=== PATIENT | male | born 1960 | race Caucasian/White ===

== ENCOUNTER → 2016-09-03 | Outpatient (CLI) | payer MEDICARE, MEDICAID ==
[~2016-09-03] MED LIST: ACID CONTROL150 MG PO; ALENDRONATE SOD70 MG PO; ASPIRIN (CHILDR81 MG PO; ASPIRIN325 MG PO; CALCIUM 600 +1 EAC6 PO; CALCIUM CARBON600 MG; CERTAVITE-ANTI1 EACH PO; DELTASONE5 MG; DELTASONE5 MG PO; DOXYCYCLINE100 MG PO; FLONASE 50 MCG/16 GM NOSE; FLORASTOR250 MG PO; GLUCOSE4 GM PO; LANTUS (IN100 UNIT/M; LANTUS SOL100 UNIT/1 PO; LEVAQUIN 750 M750 MG PO; LIPITOR10 MG; LIPITOR10 MG PO; METOPROLOL SUCC25 MG PO; MYFORTIC360 MG; MYFORTIC360 MG PO; NEORAL100 M1 PO; NEORAL25 MG; NEORAL25 MG PO; NOVOLOG FL100 UNIT/1 SUB-Q; NOVOLOG100 UNIT/M; PRINIVIL OR ZES10 MG PO; PROVENTIL OR V6.7 GM INH; SODIUM BICARBO650 MG; SODIUM BICARBO650 MG PO; TYLENOL325 MG; TYLENOL325 MG PO; VITAMIN D1000 UNIT PO; ZANTAC300 MG; ZESTRIL2.5 MG PO; [UNRECOGNIZED DRUG - OTHER]
[2016-09-03 09:51] LABS: BASOPHIL # 0.1 K/uL (0.0-0.2); EOSINOPHIL # 0.5 K/uL (0.0-0.5); EOSINOPHIL % 6.3 %; HEMATOCRIT 39.6 % (37.0-53.0); HEMOGLOBIN 12.7 g/dL (12.0-17.0); IMMATURE GRANULOCYTE % 0.4 %; LYMPHOCYTE # 2.1 K/uL (0.8-4.0); LYMPHOCYTE % 25.7 %; MCH 30.1 pg (27.0-34.0); MCHC 32.1 gm/dL (32.0-36.5); MCV 93.8 fl (83.0-98.0); MONOCYTE # 1.3 K/uL (0.0-1.0); MONOCYTE % 16.5 %; MPV 10.9 fl (9.4-12.4); NEUTROPHIL # (ANC) 4.1 K/uL (1.4-9.0); NEUTROPHIL % 50.1 %; NRBC % 0 /100WBC (0-0.00); PLATELET COUNT 276 K/uL (150-450); RBC 4.22 M/uL (4.00-6.00); RDW-CV 14.4 % (11.9-14.6); WBC 8.1 K/uL (4.0-11.0)
[2016-09-03 10:08] LABS: ANION GAP 12.5 (10.0-19.0); CALCIUM 8.7 mg/dL (8.5-10.5); CREATININE 2.4 mg/dL (0.6-1.3); MAGNESIUM 1.7 mg/dL (1.8-2.6); PHOSPHORUS 3.5 mg/dL (2.5-4.9); POTASSIUM 4.5 mMol/L (3.7-5.1)
== END | disposition disaster alternative care site (69) ==
LOC: GLAB 09:31
PROVIDERS: Internal Medicine Nephrology
DX: Z48.22 Encounter for aftercare following kidney transplant (principal); Z94.0 Kidney transplant status; Z79.899 Other long term (current) drug therapy

== ENCOUNTER 2016-10-11 12:30 | Inpatient (IN) | payer MEDICARE, MEDICAID ==
[~2016-10-11] VITALS: Ht 180.3 cm; Wt 61.0 kg
--- NOTE | ~2016-10-11 | DS ---
PATIENT'S NAME: FRANK RIVERA [facility] AGE: 56 Y [address] ROOM: [address] [place], [place] [address] LOCATION: [facility] ADMIT DATE: 10/12/2016 Discharge Summary DISCHARGE DATE: 10/15/2016 FAMILY PHYSICIAN: Sabi Godoy MD ATTENDING PHYSICIAN: Dianne Gayle CONSULTING PHYSICIANS: Dr. Mendiola. DISCHARGE DIAGNOSES: 1. Acute kidney injury on chronic kidney disease. 2. Gastroenteritis. 3. Diabetes mellitus type 1 with hyperglycemia. 4. Essential hypertension. 5. Urinary retention. 6. History of bilateral renal transplants. 7. Diabetic peripheral neuropathy. 8. Moderate protein-calorie malnutrition. HOSPITAL COURSE: Please refer to admitting history and physical as dictated by Tr Blackman APRN. Briefly, the patient was admitted to [facility] with acute kidney injury on chronic kidney disease, 3. He was also found to have acute gastroenteritis with diarrhea. However, once he was admitted, he had no further diarrhea. He was started on IV fluids. The following day, creatinine deven from 3.3 to 3.6. Nephrology was consulted. Ultrasound of his kidneys was performed to rule out hydronephrosis as the patient did have urinary retention the night before and had to have a Weinstein catheter placed. Dr. Mendiola did write to hold his cyclosporine. His lisinopril was held. He underwent a MAG3 scan as per Urology. It was felt as though the patient likely had a component of ATN on top of possible obstruction causing the hydronephrosis. Dr. Mendiola was in contact with [facility] his transplanted kidneys. The following day, his creatinine was down to 2.2. His Weinstein catheter was subsequently discontinued. The MAG3 scan did show prompt blood flow to the transplanted kidneys, atonic non- obstructed collecting system at the transplanted kidneys. On 10/14, he was given a dose of Lasix. The patient was able to void post-Weinstein, voiding 250- 400 per void with postvoid residuals at 310. Ultrasound was repeated of the kidneys which continued to show hydronephrosis which may have worsened since the prior study. Therefore, Weinstein catheter was placed and will be discharged with the catheter. On 10/14, he was noted to have a potassium of 5.3. He was given Kayexalate. On 10/15/2016, his potassium had improved to 5.1, sodium was 142, his creatinine was down to baseline at 1.9. It was felt as though he could be discharged to home with his Weinstein catheter. He should follow up with Dr. Lacho Mccann on 10/21 at the [facility]. We did go ahead and restart his lisinopril on the day of discharge. He should follow up with Dr. Sabi Godoy on 10/20/2016 with a CBC and a renal panel at that time. I did PATIENT'S NAME: FRANK RIVERA [facility] AGE: 56 Y [address] ROOM: [place] [address] LOCATION: [facility] ADMIT DATE: 10/12/2016 Discharge Summary DISCHARGE DATE: 10/15/2016 FAMILY PHYSICIAN: Sabi Godoy MD ATTENDING PHYSICIAN: Dianne Gayle A call and speak with Dr. Godoy on the day of discharge. His sugars were very labile. He did have some hypoglycemia on the morning of discharge. The patient states he adjusts his insulin based on his glucose levels at home. We will go ahead and resume his home insulin regimen while at home. LABORATORY DATA: Sodium remained stable 138-143. Potassium 4.8 upon admit, it did go as high as 5.8, prior to discharge 4.1. Glucose ranged from 61-336. BUN upon admit 61, prior to discharge 45. Creatinine 3.6 upon admit, 1.9 prior to discharge. GFR 18 upon admit, 37 prior to discharge. WBCs within normal limits, hemoglobin 12.8, hematocrit 40.7, platelets 276. Renal labs sent out labs were pending on the day of discharge. UA: Leukocytes 100, nitrites negative, protein 30, glucose 250, wbc's 2-5, rbc's 5-10, bacteria few. Urine sodium random 49, urine potassium 9.0, urine creatinine 35.0. Stool for C. diff was negative. Stool for O and P negative. White blood cells negative for fecal. RADIOLOGY REPORTS: Ultrasound of the transplanted kidneys done on 10/12/2016 showed two transplanted kidneys with mild persistent hydronephrosis. MAG3 scan, see hospital course. Followup ultrasound of the transplanted kidneys showed hydronephrosis which appeared to be worsened since the previous study. DISCHARGE INSTRUCTIONS: The patient will be discharged to home. DIET: As tolerated, diabetic. ACTIVITY: As tolerated. FOLLOWUP APPOINTMENT: With Dr. Godoy in 3 days with renal and CBC. Followup appointment Dr. Lacho Mccann on 10/21/2016 at 10:20 at the [facility]. Continue Weinstein. DISCHARGE MEDICATIONS: 1. Aspirin 325 mg p.o. daily. 2. Lipitor 10 mg p.o. daily. 3. Calcium with vitamin D two tablets p.o. daily. 4. Multivitamin one tablet daily. 5. Vitamin D3, 2000 units p.o. daily. 6. Neoral 25 mg p.o. twice daily. 7. Alendronate 70 mg p.o. weekly. 8. Lantus 18 units subcu at bedtime. 9. NovoLog carb count with meals. 10. Lisinopril 10 mg p.o. daily. PATIENT'S NAME: FRANK RIVERA [facility] AGE: 56 Y [address] ROOM: [place] [address] LOCATION: [facility] ADMIT DATE: 10/12/2016 Discharge Summary DISCHARGE DATE: 10/15/2016 FAMILY PHYSICIAN: Sabi Godoy MD ATTENDING PHYSICIAN: Dianne Gayle 11. Metoprolol 25 mg p.o. daily. 12. Myfortic 360 mg p.o. twice a day. 13. Prednisone 5 mg p.o. daily. 14. Sodium bicarb 1950 mg p.o. every night at bedtime. 15. Neoral 100 mg p.o. twice daily. 16. Ranitidine 150 mg p.o. twice daily. 17. Tylenol 650 mg p.o. every 4 hours as needed for pain. 18. Albuterol 1 puff every 4 hours as needed for shortness of breath. 19. Flonase 50 mcg 1 spray for nasal congestion p.r.n. Thank you for allowing us to participate in the care of this patient as he has been hospitalized at [facility]. JUDE HUSAIN APRN FOR DIANNE GAYLE MD KRR/modl /[id number] CC: MD Sabi Levi MD Abhisekh Sinha Ray, MD d: 10/16/16 0258 t: 11/08/16 0959, DISCHARGE SUMMARY
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
[~2016-10-11 12:30] MED LIST changes: -ALENDRONATE SOD70 MG PO; -FLONASE 50 MCG/16 GM NOSE; -LEVAQUIN 750 M750 MG PO; -PROVENTIL OR V6.7 GM INH
--- NOTE | 2016-10-11 13:39 | NUR ---
Pt is 56 y/o male admit for renal insufficiency/dehydration for hospitalist. Pt alert and oriented x3. No allergies. REsides at home with his older brother. BP low on admission. 80's/50's. Pt states he's been having diarrhea all night. Hx kidney/pancreas transplant,Type 1 DM,sinus problems,seasonal allergies,htn,murmur,pneumonia,nocturia. No c/o pain or discomfort.
[2016-10-11] MEDS ORDERED: FLONASE 50 MCG/16 GM NOSE (13:47)
[2016-10-11] MEDS ORDERED: PROVENTIL OR V6.7 GM INH (13:47)
[2016-10-11] MEDS ORDERED: ALENDRONATE SOD70 MG PO (13:48)
--- NOTE | 2016-10-11 16:21 | NUR ---
Patient is alert and oriented. Is hypotensive, tachycardic, no fevers. No shortness of breath, no pain, no nausea. Bowel sounds hyperactive. No stools so far this shift. IV to right arm, currently saline locked. has Skin tag on buttocks. Scaly, dry, lesion to right upper back. Scabs to left leg. Is ACHS accuchecks, with mild sliding scale. Diet is diabetic/renal. Will need a stool sample. Activity is as tolerated, SBA. Cooperative with cares.
[2016-10-12 05:04] LABS: BASOPHIL # 0.1 K/uL (0.0-0.2); BASOPHIL % 0.6 %; EOSINOPHIL # 0.4 K/uL (0.0-0.5); EOSINOPHIL % 5.4 %; HEMATOCRIT 38.4 % (37.0-53.0); HEMOGLOBIN 12.2 g/dL (12.0-17.0); IMMATURE GRANULOCYTE % 0.4 %; LYMPHOCYTE # 1.2 K/uL (0.8-4.0); LYMPHOCYTE % 14.1 %; MCH 29.5 pg (27.0-34.0); MCHC 31.8 gm/dL (32.0-36.5); MONOCYTE # 1.4 K/uL (0.0-1.0); MONOCYTE % 17.6 %; MPV 10.7 fl (9.4-12.4); NEUTROPHIL # (ANC) 5.1 K/uL (1.4-9.0); NEUTROPHIL % 61.9 %; NRBC % 0 /100WBC (0-0.00); PLATELET COUNT 281 K/uL (150-450); RBC 4.13 M/uL (4.00-6.00); RDW-CV 14.1 % (11.9-14.6); WBC 8.2 K/uL (4.0-11.0)
[2016-10-12 05:17] LABS: ALBUMIN 3.1 gm/dL (3.5-5.0); ANION GAP 13.8 (10.0-19.0); CALCIUM 8.8 mg/dL (8.5-10.5); CREATININE 3.6 mg/dL (0.6-1.3); PHOSPHORUS 4.4 mg/dL (2.5-4.9); POTASSIUM 4.8 mMol/L (3.7-5.1)
--- NOTE | 2016-10-12 05:19 | NUR ---
Significant Event:pt is a/o x3. pt has iv to r fa w/ ns@ 100ml. pt was hypotensive at start of shift of 82/54, bp was 106/56 at second assessment. pt was also tachy at first assessment and in the 90's at second assessment. pt only voided 150mls this am, bladder scan for 494, order for jorge placement. pt c/o nausea around 2300 but refused any medication, no emesis. accuchecks ac/hs, bs was 295 with 4 units given. pt is a sba when up. need stool sample Follow up:
--- NOTE | 2016-10-12 11:52 | NUR ---
Introduced self and role of care management to patient. He lives in [place] with his brother. He states that he is able to do all his own ADL's. He states that his brother does assist if needed. He plans on returning home on discharge. He denies any needs at this time. Will continue to follow.
--- NOTE | 2016-10-12 13:28 | NUR ---
[facility] note: Noted A1C of 8.5 % upon admission. Patient is well known to staff in [facility], has received Diabetes Education with us in years past, and does on a regular bases get his glucose meter downloaded. History of pancrease/kidney transplant with great variations in his blood sugars. Patient is sleeping at the time CDE goes to home, left the Diabetes Management booklet and Diabetes Survival Skills Assessment form at bedside. Will check on patient later today.
--- NOTE | 2016-10-12 15:22 | NUR ---
Diabetes note 1500 Talked to patient and encouraged him to complete the Diabetes Survival Skills checklist, patient states he has all of his supplies at home. Patient reports that he may be going to [facility] for treatment of his medical conditions, so he states he may not complete the form. Denies needing additional education at this time, informed patient of current A1C of 8.5 %. Patient states "that's good for me"! Discussed complications related to eyes, kidneys, heart and nerves and with proper control of blood sugars we can further assist in reducing risks of future complications. Patient states understanding teaching provided.
--- NOTE | 2016-10-12 16:51 | NUR ---
Significant event: Patient is alert and oriented x3.VSS, on room air. Weinstein in place and patent. Strict I&O. Iv to Right forearm, with Normal saline at 100ml/hr. Blood pressure better today. up independently, took shower. Is ACHS accuchecks, with mild sliding scale and carb count. Gets Levemir BID. No BM's today, still need stool sample. Is to have a urology evaluation. Is a daily standing weight. Needs to have a Mag3 scan. Keep NPO after midnight. Cooperative with cares.
[2016-10-12 17:54] LABS: BILIRUBIN URINE NEGATIVE (NEGATIVE); BLOOD URINE 250 /UL (NEGATIVE); GLUCOSE URINE 250 mg/dL (NEGATIVE); KETONE URINE NEGATIVE (NEGATIVE); LEUKOCYTES URINE 100 /UL (NEGATIVE); NITRITE URINE NEGATIVE (NEGATIVE); PROTEIN URINE 30 mg/dL (NEGATIVE); UROBILINOGEN URINE NORMAL (NORMAL)
[2016-10-12 17:56] LABS: COLOR URINE YELLOW (YELLOW); TURBIDITY URINE CLEAR (CLEAR)
[2016-10-12 18:13] LABS: BACTERIA URINE FEW (NEGATIVE); EPITHELIAL URINE 0-2 #/HPF (NEGATIVE)
[2016-10-12 18:14] LABS: MUCUS URINE 2+ (NEGATIVE)
[2016-10-12 18:15] LABS: HYALINE CAST URINE 0-2 #/LPF (NEGATIVE)
--- NOTE | 2016-10-13 04:24 | NUR ---
Significant Event:pt is a/o x3. pt is a sba, iv to r fa has ns @ 100ml/hr. pt had over 3000mls of uop in jorge. pt is accuchecks ac/hs with mild scale, and carb count, bs was 97. pt gets levimir 8 units bid. pt to have lasix renal scan this am, pt does not need to be npo for this porcedure . pt hypertensive at start of shift. metoperol held per parameters for sbp <140 @ 2200. no c/o n/v or pain. Follow up:lasix renal scan this am
[2016-10-13 07:01] LABS: BASOPHIL # 0.1 K/uL (0.0-0.2); BASOPHIL % 0.6 %; EOSINOPHIL # 0.4 K/uL (0.0-0.5); EOSINOPHIL % 4.3 %; HEMATOCRIT 40.7 % (37.0-53.0); HEMOGLOBIN 12.8 g/dL (12.0-17.0); IMMATURE GRANULOCYTE % 0.4 %; LYMPHOCYTE # 1.7 K/uL (0.8-4.0); LYMPHOCYTE % 18.3 %; MCH 29.7 pg (27.0-34.0); MCHC 31.4 gm/dL (32.0-36.5); MCV 94.4 fl (83.0-98.0); MONOCYTE # 1.5 K/uL (0.0-1.0); MONOCYTE % 16.6 %; MPV 10.9 fl (9.4-12.4); NEUTROPHIL # (ANC) 5.4 K/uL (1.4-9.0); NEUTROPHIL % 59.8 %; NRBC % 0 /100WBC (0-0.00); PLATELET COUNT 255 K/uL (150-450); RBC 4.31 M/uL (4.00-6.00); RDW-CV 13.8 % (11.9-14.6)
[2016-10-13 07:18] LABS: ALBUMIN 3.4 gm/dL (3.5-5.0); ANION GAP 14.8 (10.0-19.0); CALCIUM 8.9 mg/dL (8.5-10.5); CREATININE 2.2 mg/dL (0.6-1.3); PHOSPHORUS 2.9 mg/dL (2.5-4.9); POTASSIUM 4.8 mMol/L (3.7-5.1)
--- NOTE | 2016-10-13 13:37 | NUR ---
[facility] note: Patient denies needing any education regarding his diabetes, he is currently working on Diabetes Survival skills assessment form.
--- NOTE | 2016-10-13 15:52 | NUR ---
Significant event: Patient is alert and oriented. VSS. On room air. Weinstein removed at 1535. If no void in 4 hours, need to call the hospitalist. Is on ACHS accuchecks, with mild Slidig scale and carb count. Had his scan today. Has IV to left forearm with fluids at 100. On a renal/diabetic diet, tolerating well. No stools this shift. NO complaints of pain. Cooperative with cares.
[2016-10-13 16:11] LABS: CREATININE 2.2 mg/dL (0.6-1.3)
--- NOTE | 2016-10-14 02:49 | NUR ---
Significant Event: A/ O X 3. PATIENT IS SBA WITH IV POLE. IV FLUIDS INFUSING. VOIDS GOOD AMOUNTS 400-450ML 4 X. PASSING FLATUS, NO BM. AT HS ACCUCHECK WAS 297. INSULIN COVERAGE MILD SLIDING SCALE GIVEN. LEVEMIR GIVEN ALSO. ON RENAL/DIABETIC DIET. PATIENT HYPERTENSIVE. HAD METOPEROL THIS SHIFT. DENIES PAIN OR NAUSEA. AMBULATED IN HALLS, SBA, GOOD TOLERANCE. Follow up:
[2016-10-14 05:36] LABS: ALBUMIN 3.6 gm/dL (3.5-5.0); ANION GAP 12.3 (10.0-19.0); PHOSPHORUS 3.6 mg/dL (2.5-4.9); POTASSIUM 5.3 mMol/L (3.7-5.1)
--- NOTE | 2016-10-14 17:24 | NUR ---
AAOx3. Up independently in room. IVF to LFA. BS ac/hs mild SSI, CC, and Levemir BID. VSS, afebrile, on RA. Refused jorge placement; had been pulled yesterday, but Dr Mendiola ordered reinsertion. On antirejection meds. IV Lasix x1 today. Voiding per urinal 250-400per void1. (Did scan PVR x1 w/310ml present). Watching for Cr level in a.m.
[2016-10-14 18:39] LABS: ANION GAP 12.8 (10.0-19.0); CALCIUM 9.1 mg/dL (8.5-10.5); CREATININE 2.1 mg/dL (0.6-1.3)
[2016-10-14 18:44] LABS: POTASSIUM 5.8 mMol/L (3.7-5.1)
[2016-10-15 06:03] LABS: ALBUMIN 3.6 gm/dL (3.5-5.0); ANION GAP 13.1 (10.0-19.0); CALCIUM 8.9 mg/dL (8.5-10.5); CREATININE 1.9 mg/dL (0.6-1.3); PHOSPHORUS 3.6 mg/dL (2.5-4.9)
[2016-10-15 06:04] LABS: POTASSIUM 4.1 mMol/L (3.7-5.1)
--- NOTE | 2016-10-15 07:32 | NUR ---
Significant Event: A/O X3 AND COOPERATIVE WITH CARES. UP AD AMY. AC/HS ACCUCHECKS, OCCASIONALLY LOW BLOOD SUGARS. POTASSIUM LEVEL LAST NIGHT WAS 5.8, GAVE 1 DOSE OF KAYEXALATE. NO BM'S DURING SHIFT. VOIDING WELL PER URINAL. INCREASED IV RATE TO 150ML/HR. IV TO R) FA INFUSING WITHOUT DIFFICULTLY. VSS AND AFEBRILE. SLEPT OFF/ON THROUGH NIGHT. AMBULATES IN [place] AND UP IN CHAIR. Follow up:
--- NOTE | 2016-10-15 16:30 | NUR ---
D: ORDERS RECEIVED FOR THE PATIENT TO BE DISCHARGED TO HOME TODAY. I: DISMISSAL INSTRUCTIONS WERE PREPARED AND REVIEWED WITH THE PATIENT VIRTUALLY. THE FOLLOWING INFORMATION WAS DISCUSSED INCLUDING [employer] TEACHING SHEETS PROVIDED: DISCHARGE INSTRUCTIONS FOR ACUTE KIDNEY INJURY, PREVENTING DVT, DISCHARGE INSTRUCTIONS FOR CARING FOR YOUR INDWELLING URINARY CATHETER, EMPTYING AND CLEANING YOUR URINARY CATHETER BAG, AND DISCHARGE INSTRUCTIONS CARING FOR YOUR LEG BAG. NO NEW PRESCRIPTIONS TO REVIEW BUT DID REVIEW HOME MEDICATIONS AND LAST DOSE/TIME WAS TAKEN. R: THE PATIENT VERBALIZED UNDERSTANDING OF THE DISMISSAL EDUCATION AT THE TIME OF TEACHING WITH NO FURTHER QUESTIONS. P: THE ABOVE INFORMATION WAS SHARED WITH THE PRIMARY NURSE AND THE CHARGE NURSE THAT THE DISMISSAL EDUCATION WAS COMPLETED. THE PATIENT IS READY FOR DISCHARGE TO THE FRONT DOOR VIA WHEEL CHAIR BY [employer].
== END 2016-10-15 17:40 | disposition disaster alternative care site (69) | DRG 698 ==
LOC: GMSU 12:38
PROVIDERS: Internal Medicine Nephrology; Nurse Practitioner Family; ADMIT Internal Medicine
DX: T86.19 Other complication of kidney transplant (principal); N17.0 Acute kidney failure with tubular necrosis; E44.0 Moderate protein-calorie malnutrition; T86.99 Other complications of unspecified transplanted organ and tissue; Z68.1 Body mass index [BMI] 19.9 or less, adult; N13.30 Unspecified hydronephrosis; E10.40 Type 1 diabetes mellitus with diabetic neuropathy, unspecified; Z94.0 Kidney transplant status; N18.9 Chronic kidney disease, unspecified; I12.9 Hypertensive chronic kidney disease with stage 1 through stage 4 chronic kidney disease, or unspecified chronic kidney disease; E78.5 Hyperlipidemia, unspecified; K52.9 Noninfective gastroenteritis and colitis, unspecified; E10.65 Type 1 diabetes mellitus with hyperglycemia; R33.9 Retention of urine, unspecified; E86.0 Dehydration; M81.0 Age-related osteoporosis without current pathological fracture; K21.9 Gastro-esophageal reflux disease without esophagitis; Z79.52 Long term (current) use of systemic steroids; Z79.4 Long term (current) use of insulin
CPT/HCPCS: A9562; G0378; G0379; J1644; J1940; J7030; J7502; J7512; J7518

== ENCOUNTER 2016-10-26 20:48 | Emergency (ER) | payer MEDICARE, MEDICAID ==
--- NOTE | ~2016-10-26 | ER ---
PATIENT'S NAME: FRANK RIVERA [facility] AGE: 56 Y [address] ROOM: [place] [id number] LOCATION: [facility] ADMIT DATE: 10/26/2016 ER/Outpatient Report DISCHARGE DATE: 10/26/2016 FAMILY PHYSICIAN: Sabi Godoy MD ATTENDING PHYSICIAN: Brendan Watkins Time of Arrival: 2048 hours. Time of Exam: 2048 hours. CHIEF COMPLAINT: Catheter issues. HISTORY OF PRESENT ILLNESS: The patient states he has been having problems with urinary retention. He had a Weinstein catheter placed on 10/18/2016, it was changed on 10/22/2016, and then tonight at approximately 5 o'clock or 6 o'clock, he began having problems with it not draining. He feels like his bladder is full. He reports he has been having some problems with constipation the last couple of weeks also. His urine has been bloody in nature, he states that it has been a problem that he has had ongoing for the past year. Denies having pain due to the discomfort from the needing to urinate. ALLERGIES: NO KNOWN ALLERGIES. CURRENT MEDICATIONS: On his chart and reviewed by me. PAST MEDICAL HISTORY: Insulin-dependent diabetic; hypertension; hyperlipidemia; chronic kidney disease, stage III; diabetic peripheral neuropathy; hypothyroidism; and osteoporosis. PAST SURGERIES: Bilateral kidney transplant in 1994 and pancreatic transplant in 1994, he has had a right total hip, C7 fusion, and amputation of the left 5th toe. SOCIAL HISTORY: Denies use of tobacco, drugs, or alcohol. REVIEW OF SYSTEMS: All negative other than those mentioned in the HPI. PHYSICAL EXAMINATION: VITAL SIGNS: He weighed 64.4 kg. Blood pressure is 160/88, pulse of 112, PATIENT'S NAME: FRANK RIVERA [facility] AGE: 56 Y [address] ROOM: [place], [place] [address] LOCATION: [facility] ADMIT DATE: 10/26/2016 ER/Outpatient Report DISCHARGE DATE: 10/26/2016 FAMILY PHYSICIAN: Sabi Godoy MD ATTENDING PHYSICIAN: Brendan Watkins respirations 18, temperature of 99.8 tympanic, and O2 saturation was 96% on room air. GENERAL: He is awake, alert, and oriented x4. SKIN: [place], warm, and dry. RESPIRATIONS: Even and nonlabored. Lung sounds are clear throughout. HEART: Regular rate and rhythm. ABDOMEN: Soft, nondistended. Bowel sounds are present. He is tender to palpate in the lower abdominal area. EMERGENCY ROOM COURSE: Weinstein cath was removed and a 16-Romansh was replaced without incident. He does have some bloody urine returned. Sample was obtained and sent to the lab. He states he did get started on some antibiotic today, that was called to him by the Transplant Team due to a urinary tract infection, but he is not able to remember the name of it. His cath UA tonight shows 500 leukocytes, positive nitrites, 250 blood, negative glucose, negative ketones, white blood cells are full field with bacteria being negative. The patient was monitored. Catheter continued to drain without incident. The patient had a total of approximately 150 mL urine out while he was here in the ER. He states he is scheduled to see Dr. Ontiveros at [address] o'[address] Dr. Ontiveros wants him to pull the catheter at 4 o'clock in the morning and then see him as scheduled. I encouraged the patient to continue that as scheduled. IMPRESSION: Urinary retention. PLAN: Home, rest. Continue his antibiotics. Pull the catheter as ordered by Dr. Ontiveros and see Dr. Ontiveros as scheduled. He verbalized understanding. DAVEY DALTON APRN FOR MD BRITTANY WEAVER/lior /[id number] d: 10/27/16 0119 t: 10/29/16 1218, OUTPATIENT REPORT
[~2016-10-26 20:48] MED LIST changes: +ALENDRONATE SOD70 MG PO; +FLONASE 50 MCG/16 GM NOSE; +PROVENTIL OR V6.7 GM INH
[2016-10-26 21:40] LABS: BILIRUBIN URINE NEGATIVE (NEGATIVE); BLOOD URINE 250 /UL (NEGATIVE); COLOR URINE RED (YELLOW); GLUCOSE URINE NEGATIVE (NEGATIVE); KETONE URINE NEGATIVE (NEGATIVE); LEUKOCYTES URINE 500 /UL (NEGATIVE); NITRITE URINE POSITIVE (NEGATIVE); PROTEIN URINE 500 mg/dL (NEGATIVE); TURBIDITY URINE 4+ (CLEAR); UROBILINOGEN URINE 1 mg/dL (NORMAL)
[2016-10-26 21:53] LABS: RBC URINE PACKED FIELD #/HPF (NEGATIVE); WBC URINE FULL FIELD #/HPF (NEGATIVE)
[2016-10-26 21:55] LABS: BACTERIA URINE NEGATIVE (NEGATIVE); EPITHELIAL URINE NEGATIVE #/HPF (NEGATIVE); MUCUS URINE 1+ (NEGATIVE)
[2016-10-26 21:56] LABS: WBC CLUMPS URINE FEW (NEGATIVE)
== END 2016-10-26 22:04 | disposition disaster alternative care site (69) ==
LOC: GMED 20:48
PROVIDERS: Nurse Practitioner Family
PROC: 0T2BX0Z Change Drainage Device in Bladder, External Approach (ICD-10-PCS; principal; 2016-10-26)
DX: R33.9 Retention of urine, unspecified (principal); E11.40 Type 2 diabetes mellitus with diabetic neuropathy, unspecified; I13.10 Hypertensive heart and chronic kidney disease without heart failure, with stage 1 through stage 4 chronic kidney disease, or unspecified chronic kidney disease; N18.3 Chronic kidney disease, stage 3 (moderate); E03.9 Hypothyroidism, unspecified; M81.0 Age-related osteoporosis without current pathological fracture; Z94.0 Kidney transplant status; Z98.1 Arthrodesis status; Z98.890 Other specified postprocedural states; Z94.83 Pancreas transplant status; Z79.899 Other long term (current) drug therapy

== ENCOUNTER → 2016-11-05 | Outpatient (CLI) | payer MEDICARE, MEDICAID ==
[~2016-11-05] MED LIST changes: +LEVAQUIN 750 M750 MG PO
[2016-11-05 09:02] LABS: BASOPHIL # 0.1 K/uL (0.0-0.2); BASOPHIL % 0.7 %; EOSINOPHIL # 0.3 K/uL (0.0-0.5); EOSINOPHIL % 2.7 %; HEMATOCRIT 39.4 % (37.0-53.0); HEMOGLOBIN 12.5 g/dL (12.0-17.0); IMMATURE GRANULOCYTE # 0.1 K/uL (0.0-0.3); LYMPHOCYTE # 1.6 K/uL (0.8-4.0); LYMPHOCYTE % 13.5 %; MCH 29.7 pg (27.0-34.0); MCHC 31.7 gm/dL (32.0-36.5); MCV 93.6 fl (83.0-98.0); MONOCYTE # 1.1 K/uL (0.0-1.0); MONOCYTE % 9.3 %; MPV 9.8 fl (9.4-12.4); NEUTROPHIL # (ANC) 8.3 K/uL (1.4-9.0); NEUTROPHIL % 72.8 %; NRBC % 0 /100WBC (0-0.00); PLATELET COUNT 530 K/uL (150-450); RBC 4.21 M/uL (4.00-6.00); RDW-CV 13.4 % (11.9-14.6); WBC 11.4 K/uL (4.0-11.0)
[2016-11-05 09:04] LABS: BILIRUBIN URINE NEGATIVE (NEGATIVE); BLOOD URINE NEGATIVE /UL (NEGATIVE); COLOR URINE YELLOW (YELLOW); GLUCOSE URINE NEGATIVE (NEGATIVE); KETONE URINE NEGATIVE (NEGATIVE); LEUKOCYTES URINE 25 /UL (NEGATIVE); NITRITE URINE NEGATIVE (NEGATIVE); PROTEIN URINE 15 mg/dL (NEGATIVE); SPEC GRAVITY URINE 1.005 (1.003-1.035); TURBIDITY URINE CLEAR (CLEAR); UROBILINOGEN URINE NORMAL (NORMAL)
[2016-11-05 09:17] LABS: CALCIUM 9.2 mg/dL (8.5-10.5); MAGNESIUM 1.6 mg/dL (1.8-2.6); PHOSPHORUS 3.8 mg/dL (2.5-4.9)
[2016-11-05 09:44] LABS: BACTERIA URINE NEGATIVE (NEGATIVE); EPITHELIAL URINE NEGATIVE #/HPF (NEGATIVE); RBC URINE NEGATIVE #/HPF (NEGATIVE); WBC URINE 0-2 #/HPF (NEGATIVE)
== END | disposition disaster alternative care site (69) ==
LOC: GLAB 08:22
PROVIDERS: Internal Medicine Nephrology
DX: Z48.22 Encounter for aftercare following kidney transplant (principal); Z94.0 Kidney transplant status; Z79.899 Other long term (current) drug therapy

== ENCOUNTER 2016-11-13 21:46 | Inpatient (IN) | payer MEDICARE, MEDICAID ==
[~2016-11-13] VITALS: Ht 180.3 cm; Wt 62.9 kg
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
--- NOTE | ~2016-11-13 | DS ---
PATIENT'S NAME: FRANK RIVERA [facility] AGE: 56 Y [address] ROOM: [place] [address] LOCATION: GPCU ADMIT DATE: 11/13/2016 Discharge Summary DISCHARGE DATE: 11/18/2016 FAMILY PHYSICIAN: Sabi Godoy MD ATTENDING PHYSICIAN: Hal Azevedo PRIMARY DIAGNOSES: 1. Severe sepsis. 2. Urinary tract infection with Klebsiella. 3. Acute kidney injury. 4. Chronic kidney disease, stage 4. 5. Status post renal transplant, on chronic immunosuppressant therapy. 6. Diabetes mellitus type 2. 7. Essential hypertension. 8. Obstructive uropathy. 9. Benign prostatic hypertrophy. 10. Gross hematuria. 11. Hyperkalemia. 12. Moderate protein-calorie malnutrition. OPERATIONS OR PROCEDURES: None. HISTORY OF PRESENTING ILLNESS AND REASON FOR ADMISSION: Please refer to the H and P dictated on 11/13/2016. HOSPITAL COURSE: The patient was admitted to the hospital as noted above with a presumptive diagnosis of severe sepsis. He was placed on the sepsis pathway. He received aggressive supportive cares and some IV fluid hydration therapy. He was treated with broad-spectrum antibiotic therapy with meropenem. Cultures eventually revealed Klebsiella. Abdominal ultrasound was obtained, and this demonstrated severe hydronephrosis. Urology was consulted, and it was recommended for Weinstein catheter placement due to his suspected BPH and urinary outflow obstruction. He was recommended to have an outpatient followup for cystoscopy and possible intervention in a couple of weeks and after resolution of the infection. Nephrology also followed the patient over the course of this hospital stay. They were in contact with the transplant team at [facility]. He did receive sodium bicarbonate therapy as well as IV fluid therapy. His renal function gradually improved. He continued to receive supportive cares and some restorative care. His clinical condition gradually improved, and his renal function resolved with creatinine improving from 3 at the point of hospitalization to 1.8 on the date of discharge. PATIENT'S NAME: FRANK RIVERA [facility] AGE: 56 Y [address] ROOM: [place] [address] LOCATION: GPCU ADMIT DATE: 11/13/2016 Discharge Summary DISCHARGE DATE: 11/18/2016 FAMILY PHYSICIAN: Sabi Godoy MD ATTENDING PHYSICIAN: Hal Azevedo His diabetes management was through the use of sliding scale insulin and scheduled mealtime insulin. He did have some titration over the course of his hospital stay here, but by the end of his hospital stay, it was felt he could be safely transitioned back to his home regimen. DISCHARGE INSTRUCTIONS: DIET: ADA 2000-calorie per day as tolerated. ACTIVITIES: As tolerated. MEDICATIONS: 1. Atorvastatin 10 mg p.o. daily. 2. Cyclosporine 25 mg p.o. b.i.d. 3. Alendronate 70 mg p.o. q.week. 4. Insulin glargine 18 units subcu q.h.s. 5. NovoLog FlexPen subcu t.i.d. with meals per carb counting regimen. 6. Levofloxacin 750 mg p.o. q.48 hours, last dose on 11/19/2016. 7. Metoprolol 12.5 mg p.o. q.h.s. 8. Myfortic 360 mg p.o. b.i.d. 9. Prednisone 5 mg p.o. daily. 10. Sodium bicarbonate 1950 mg p.o. q.h.s. 11. Acetaminophen 650 mg p.o. q.4 hours p.r.n. 12. Aspirin 325 mg p.o. daily. 13. Cyclosporine 100 mg p.o. b.i.d. 14. Calcium with vitamin D one tablet p.o. daily. 15. Vitamin D3 2000 units p.o. daily. 16. Multivitamin with iron and folate daily. 17. Ranitidine 150 mg p.o. b.i.d. 18. Albuterol HFA 1 puff p.o. q.4 hours p.r.n. 19. Flonase nasal spray 1 spray each nostril daily p.r.n. FOLLOWUP: He will follow up with Dr. Chan, Urology, on 12/02/2016 for cystoscopy, and will follow up with Dr. Mendiola in 2 weeks. Follow up with his primary care provider, Dr. Sabi Mars, in 5 to 7 days. CONDITION ON DISCHARGE: Fair. Total time spent on discharge process 45 minutes. NANCY VARGAS MD PATIENT'S NAME: FRANK RIVERA [facility] AGE: 56 Y [address] ROOM: [place] [address] LOCATION: GPCU ADMIT DATE: 11/13/2016 Discharge Summary DISCHARGE DATE: 11/18/2016 FAMILY PHYSICIAN: Sabi Godoy MD ATTENDING PHYSICIAN: Hal Azevedo/lior /[id number] d: 11/19/167 t: 11/20/16 0833, DISCHARGE SUMMARY
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
--- NOTE | ~2016-11-13 | ER ---
PATIENT'S NAME: FRANK RIVERA [facility] AGE: 56 Y [address] ROOM: [address] [address] LOCATION: GPCU ADMIT DATE: 11/13/2016 ER/Outpatient Report DISCHARGE DATE: FAMILY PHYSICIAN: Sabi Godoy MD ATTENDING PHYSICIAN: ADELINA ESCALANTE Time of Arrival: 2203. Time of Exam: 2209. CHIEF COMPLAINT: Possible bladder infection. HISTORY OF PRESENT ILLNESS: The patient states he has not felt well for the last 7 days, has had increased weakness, decreased urinary output, increased blood in his urine. He does have pain with urination. He denies being nauseated, has not vomited. States he has had some chills off and on, but no fever that he has checked. He was hospitalized a month ago with acute kidney injury, on chronic kidney disease, gastroenteritis. ALLERGIES: NO KNOWN ALLERGIES. CURRENT MEDICATIONS: On his chart and reviewed by me. PAST MEDICAL HISTORY: Insulin-dependent diabetes, hypothyroidism, hypertension, urinary retention. PAST SURGERIES: Include bilateral kidney transplant with a pancreatic transplant in 1994. Right total hip, C7 fusion, and amputation of the left fifth toe. SOCIAL HISTORY: He presents to the ER tonight with his son. Denies use of tobacco or drugs. Rarely drinks alcohol. Dr. Godoy is his primary provider. REVIEW OF SYSTEMS: All negative other than those mentioned in the HPI. He states he is 5 feet 11 inches. He weighs 61.7 kg. PHYSICAL EXAMINATION: VITAL SIGNS: Blood pressure was 88/51, pulse of 134, respirations 16, temperature of 100.5, O2 saturation was 93% on room air. GENERAL: He is awake, alert, and oriented x4. PATIENT'S NAME: FRANK RIVERA [facility] AGE: 56 Y [address] ROOM: [address] [address] LOCATION: GPCU ADMIT DATE: 11/13/2016 ER/Outpatient Report DISCHARGE DATE: FAMILY PHYSICIAN: Sabi Godoy MD ATTENDING PHYSICIAN: ADELINA ESCALANTE SKIN: Railroad, warm, and dry. RESPIRATIONS: Even and nonlabored. Lung sounds were clear throughout. HEART: Regular rate and rhythm. ABDOMEN: Soft and nondistended. Bowel sounds are present. Saline lock was initiated with fluids at a wide-open rate. LABORATORY DATA AND X-RAYS: Lab work was drawn. CBC shows a white count of 24.3, hemoglobin 13.5, hematocrit of 41.8. Chem panel: Sodium is 137, potassium 6.4, chloride of 107, BUN is 55, with creatinine of 3. GFR was 22. Lactate is 1.4. Procalcitonin is 1.43. Clean-catch UA was obtained. It does show leukocytes. Micro shows 10-20 white blood cells, with moderate bacteria. EKG was completed. Does show sinus tach. Dr. Escalante was contacted regarding the patient. Orders were obtained for treating the hyperkalemia. The patient will be given calcium gluconate 1 g IV, 10 units of regular insulin IV, Kayexalate 30 g p.o. stat, dextrose 10% IV fluids at 75 mL/hour. We will start him on meropenem for his UTI. IMPRESSION: 1. Sepsis with urinary tract infection. 2. Hyperkalemia. PLAN: The patient will be admitted for care of the hospitalist. He is aware of the plan of care. DAVEY DALTON APRN FOR MD BRITTANY WEAVER/lior /[id number] d: 11/14/16 0104 t: 11/20/16 0613, OUTPATIENT REPORT
[~2016-11-13 21:46] MED LIST changes: -LEVAQUIN 750 M750 MG PO
[2016-11-13 22:35] LABS: BILIRUBIN URINE NEGATIVE (NEGATIVE); BLOOD URINE 250 /UL (NEGATIVE); COLOR URINE RED (YELLOW); GLUCOSE URINE NEGATIVE (NEGATIVE); KETONE URINE NEGATIVE (NEGATIVE); LEUKOCYTES URINE 100 /UL (NEGATIVE); NITRITE URINE NEGATIVE (NEGATIVE); PROTEIN URINE 500 mg/dL (NEGATIVE); TURBIDITY URINE 4+ (CLEAR); UROBILINOGEN URINE NORMAL (NORMAL)
[2016-11-13 22:42] LABS: HEMATOCRIT 41.8 % (37.0-53.0); HEMOGLOBIN 13.5 g/dL (12.0-17.0); MCH 29.7 pg (27.0-34.0); MCHC 32.3 gm/dL (32.0-36.5); MCV 91.9 fl (83.0-98.0); MPV 10.8 fl (9.4-12.4); RBC 4.55 M/uL (4.00-6.00); RDW-CV 14.2 % (11.9-14.6)
[2016-11-13 22:48] LABS: PLATELET COUNT 321 K/uL (150-450); WBC 24.3 K/uL (4.0-11.0)
[2016-11-13 22:53] LABS: BACTERIA URINE MODERATE (NEGATIVE); RBC URINE 20-50 #/HPF (NEGATIVE)
[2016-11-13 23:02] LABS: ALBUMIN 3.5 gm/dL (3.5-5.0); CALCIUM 9.1 mg/dL (8.5-10.5); TOTAL BILIRUBIN 1.1 mg/dL (0.0-1.5); TOTAL PROTEIN 6.7 g/dL (6.0-8.4)
[2016-11-13 23:03] LABS: ANION GAP 17.4 (10.0-19.0); POTASSIUM 6.4 mMol/L (3.7-5.1)
[2016-11-13 23:15] LABS: ABSOLUTE NEUTROPHIL CT (ANC) 19.9 K/uL (1.4-9.0); BANDED NEUTROPHIL # 1.9 K/uL (0.0-0.1); BANDED NEUTROPHILS % 8 %; LYMPHOCYTE # 0.5 K/uL (0.8-4.0); LYMPHOCYTE % 2 %; MONOCYTE # 3.9 K/uL (0.0-1.0); SEGMENTED NEUTROPHIL % 74 %
[2016-11-14 01:43] LABS: CALCIUM 8.6 mg/dL (8.5-10.5); CREATININE 3.1 mg/dL (0.6-1.3)
[2016-11-14 01:47] LABS: ANION GAP 15.4 (10.0-19.0); POTASSIUM 5.4 mMol/L (3.7-5.1)
--- NOTE | 2016-11-14 03:09 | NUR ---
PATIENT ADMITTED FOR HYPERKALEMIA AND UTI. HX DM, KIDNEY AND PANCREAS TRANSPLANT IN 1994, HTN. C/O BLODY URINE AND BURING WITH URINATION x1WEEK. EDUCATED PATIENT ON USE OF CALL LIGHT. BED ALARM ACTIVATED.
--- NOTE | 2016-11-14 05:22 | NUR ---
A/O. HR 120-130s. SBP 99-140s. T-MAX 101.5. 10 REG INSULIN UNITS IV GIVEN. PLUS DEXTROSE 50%. KEXCELLATE GIVEN PO WITH RESULTS. NS RUNNING AT 150 ML/HR. TYLENOL GIVEN FOR TEMP. UROLOGY CONSULT FOR AM. MATTHEW PAIN
[2016-11-14 08:23] LABS: HEMATOCRIT 35.1 % (37.0-53.0); HEMOGLOBIN 11.7 g/dL (12.0-17.0); MCH 30.5 pg (27.0-34.0); MCHC 33.3 gm/dL (32.0-36.5); MCV 91.4 fl (83.0-98.0); MPV 10.8 fl (9.4-12.4); RBC 3.84 M/uL (4.00-6.00); RDW-CV 14.1 % (11.9-14.6)
[2016-11-14 08:26] LABS: WBC 17.8 K/uL (4.0-11.0)
[2016-11-14 08:35] LABS: ANION GAP 14.9 (10.0-19.0); CALCIUM 7.9 mg/dL (8.5-10.5); CREATININE 2.7 mg/dL (0.6-1.3); MAGNESIUM 1.3 mg/dL (1.8-2.6); PHOSPHORUS 3.2 mg/dL (2.5-4.9)
[2016-11-14 08:38] LABS: POTASSIUM 3.9 mMol/L (3.7-5.1)
[2016-11-14 11:45] LABS: INR - (THERAPEUTIC) 1.1 (0.92-1.07); PROTIME 11.6 SECONDS (9.8-11.4)
--- NOTE | 2016-11-14 17:17 | NUR ---
PATIENT IS A&Ox3 BUT DROWSY. PATIENT IS TACHYCARDIC, WITH SBP RANGING FROM 120-128, AND IS AFEBRILE. PATIENT CONTINUES TO HAVE HEMATURIA. CONSULTED DR. JONES. PATIENT WAS NPO THROUGHOUT DAY. TREATED THREE LOW BLOOD SUGARS WITH DEXTROSE WITH BLOOD SUGARS. AFTER PATIENT WAS ABLE TO EAT AGAIN, BLOOD SUGAR RAISED TO 248 QUICKLY. BLOOD SUGARS ARE TO BE CHECKED Q2H BUT ONLY TO BE TREATED WITH MEALS WITH A MILD SLIDING SCALE AND CONTINUE WITH CARB COUNT. PATIENT DENIES ALL PAIN. PATIENT CONTINUES TO MEREPENEM Q8H. HAD 4 LOOSE STOOLS TODAY DUE TO KAYEXALATE. FOLLOW UP: CONTINUE TO MONITOR PER PLAN OF CARE.
--- NOTE | 2016-11-15 04:39 | NUR ---
A/O. HR 110-120s. SBP 130s. ROOM AIR. TEMP MAX 99.5. CUELLAR SLIGHTLY BLOODY 2000 ML UOP. ACCUCHECKS Q2HR. LEVIMIR 9 UNITS GIVEN. NO BM. DENIES PAIN. SBA
[2016-11-15 05:54] LABS: ALBUMIN 2.2 gm/dL (3.5-5.0); ANION GAP 12.9 (10.0-19.0); CALCIUM 7.7 mg/dL (8.5-10.5); CREATININE 2.1 mg/dL (0.6-1.3); PHOSPHORUS 2.9 mg/dL (2.5-4.9); POTASSIUM 3.9 mMol/L (3.7-5.1)
--- NOTE | 2016-11-15 10:57 | NUR ---
(-)MST; WT IS STABLE FROM PREVIOUS ADMITS. WILL ASSIST NEEDED.
--- NOTE | 2016-11-15 12:45 | NUR ---
Introduced self and role of care management to patient. He lives in [place] with his brother. He says he needs "surgery" and Drs are trying to decide if he should stay here or go to [place]. Says he was in [place] last month and just wants to quit having to be in the hospital. 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 He plans home and has a good support system. Will follow.
--- NOTE | 2016-11-15 16:52 | NUR ---
PATIENT IS A&0x3. PATIENT IS TACHYCARDIC IN LOW 100s WITH REST OF VITAL SIGNS STABLE. PATIENT HAS 3075 ML OF YELLOW URINE WITH A WHITE SEDIMENT VIA CUELLAR. NS REDUCED TO 100 ML/HR. CYCLOSPORINE RESTARTED. FOLLOW UP: CONTINUE WITH PLAN OF CARE.
[2016-11-16 04:37] LABS: ALBUMIN 2.3 gm/dL (3.5-5.0); CALCIUM 8.1 mg/dL (8.5-10.5); CREATININE 1.7 mg/dL (0.6-1.3); PHOSPHORUS 2.7 mg/dL (2.5-4.9)
--- NOTE | 2016-11-16 04:37 | NUR ---
Patient alert and oriented. Transfers 1A GB. 3500 yellow urine out of jorge. NS running at 100 ml/hr in R) forearm. VSS. Order clarification for ACHS accu checks, sliding scale to be done with every check. Accu check 341. Complaints of pain in the neck, relieved by tylenol. Up most of the night. Cooperative with cares.
--- NOTE | 2016-11-16 11:30 | NUR ---
Spoke with patient and he says he thinks he not going to have to go to [place], but says the Drs haven't decided for sure. He does not anticipate discharge needs. Will follow.
--- NOTE | 2016-11-16 16:51 | NUR ---
Significant Event: VSS AND RA. AFEBRILE. DENIES PAIN. NS CONTINUES AT 100 MLS/HR. CUELLAR PATENT WITH 4425 MLS UOP. BS 208/303/182; LEVEMIR DOSE INCREASED. SBPS 160S THIS AM-180S THIS AFTERNOON P SHOWER. ORDER FOR HYDRALAZINE PRN AND WAS GIVEN AT 1533, WITH SBPS COMING DOWN TO 158. ORDER ALSO RECIEVED TO RESTART PM DOSE OF METOPROLOL. UP TO RECLINER ALL AFTERNOON, REPOSITIONED Q2H AND IRIS CUSHION PLACED. Follow up: CONTINUE PLAN OF CARE; AWAITING PLAN FOR CYSTO/RENAL CONSULTING WITH [facility].
--- NOTE | 2016-11-17 05:16 | NUR ---
Significant Event: A/O, SBP 120-160s, HR 80-90s, RA, afebrile, jorge had 3325ml out, yellow and cloudy, NS infusing at 100ml/hr to post R)fa, SBA transfers, Tylenol at 0340 for headache, HS accucheck 386 Follow up: possible d/c home in few days
[2016-11-17 06:15] LABS: BASOPHIL % 0.4 %; EOSINOPHIL # 0.4 K/uL (0.0-0.5); EOSINOPHIL % 3.8 %; HEMOGLOBIN 10.2 g/dL (12.0-17.0); IMMATURE GRANULOCYTE # 0.1 K/uL (0.0-0.3); IMMATURE GRANULOCYTE % 0.9 %; LYMPHOCYTE # 1.8 K/uL (0.8-4.0); LYMPHOCYTE % 18.4 %; MCHC 31.9 gm/dL (32.0-36.5); MCV 90.9 fl (83.0-98.0); MONOCYTE # 1.5 K/uL (0.0-1.0); MONOCYTE % 15.1 %; MPV 10.7 fl (9.4-12.4); NEUTROPHIL # (ANC) 6.1 K/uL (1.4-9.0); NEUTROPHIL % 61.4 %; NRBC % 0 /100WBC (0-0.00); PLATELET COUNT 287 K/uL (150-450); RBC 3.52 M/uL (4.00-6.00); RDW-CV 13.9 % (11.9-14.6)
[2016-11-17 06:31] LABS: ALBUMIN 2.4 gm/dL (3.5-5.0); ANION GAP 13.6 (10.0-19.0); CALCIUM 8.2 mg/dL (8.5-10.5); CREATININE 1.7 mg/dL (0.6-1.3); PHOSPHORUS 3.9 mg/dL (2.5-4.9); POTASSIUM 3.6 mMol/L (3.7-5.1)
--- NOTE | 2016-11-17 17:19 | NUR ---
A&O. SBA. SBP 140'S-150'S. HR 90'S. RA. AFEBRILE. NO C/O PAIN. LS CLEAR. VD PER CUELLAR. NO BM TODAY. ATBX PO. NEED CYSTO. IVF TO SL. ACHS W/ CARB COUNT. BS 41 THIS AM HS SNACK! HOME TOMORROW?
[2016-11-18 03:33] LABS: BASOPHIL # 0.1 K/uL (0.0-0.2); BASOPHIL % 0.7 %; EOSINOPHIL # 0.3 K/uL (0.0-0.5); EOSINOPHIL % 3.7 %; HEMATOCRIT 34.5 % (37.0-53.0); HEMOGLOBIN 11.4 g/dL (12.0-17.0); IMMATURE GRANULOCYTE # 0.3 K/uL (0.0-0.3); IMMATURE GRANULOCYTE % 3.4 %; LYMPHOCYTE # 2.5 K/uL (0.8-4.0); LYMPHOCYTE % 28.4 %; MCV 90.8 fl (83.0-98.0); MONOCYTE # 1.4 K/uL (0.0-1.0); MPV 10.8 fl (9.4-12.4); NEUTROPHIL # (ANC) 4.2 K/uL (1.4-9.0); NEUTROPHIL % 47.8 %; NRBC % 0 /100WBC (0-0.00); PLATELET COUNT 336 K/uL (150-450); RDW-CV 13.8 % (11.9-14.6); WBC 8.7 K/uL (4.0-11.0)
[2016-11-18 03:47] LABS: ALBUMIN 2.6 gm/dL (3.5-5.0); CALCIUM 8.7 mg/dL (8.5-10.5); CREATININE 1.8 mg/dL (0.6-1.3)
[2016-11-18 03:49] LABS: ANION GAP 11.8 (10.0-19.0); POTASSIUM 3.8 mMol/L (3.7-5.1)
--- NOTE | 2016-11-18 05:20 | NUR ---
Significant Event: PATIENT IS A/O X3. VSS. HR 90-100'S. SBP 140-150'S. AFEBRILE. 02 SATS IN MID TO UPPER 90'S ON RA. NO C/O PAIN. LUNGS CLEAR THROUGHOUT. UP WITH SBA. HAS UNEVEN GAIT RELATED TRAUMA IN . BOWELS ACTIVE. NO BM SINCE THE . NO C/O CONSTIPATION OR BLOATING. CUELLAR INTACT WITH 1425 ML UOP. URINE FOUL SMELLING WITH WHITE SEDIMENT. RIGHT FOREARM IV SL. GAVE PATIENT SANDWHICH AT 0230. AM LAB DRAW AT 0300. NOTICIED BLOOD SUGAR OF 42 ON AM LABS AROUND 0415. BLOOD SUGAR RECHECK AT 0420 WAS 114. CONTINUES TO BE ON ACHS ACCUCHECKS. Follow up: CONTINUE TO MONITOR PER PLAN OF CARE.
--- NOTE | 2016-11-18 12:15 | NUR ---
Spoke with patient and he is going home today. Denies discharge needs at this time.
[2016-11-18] MEDS ORDERED: LEVAQUIN 750 M750 MG PO (13:26)
--- NOTE | 2016-11-18 15:32 | NUR ---
A&O. SBA. NO C/O PAIN. VSS. LS CLEAR. BS ACTIVE. ACHS CARB COUNT. CUELLAR INTACT SWITCHED TO LEG BAG WITH TEACHING PRIOR TO DC. INSTRUCTIONS REVIEWED. IV DC'D. TAKEN TO LOBBY VIA WC TO FRIEND VEHICLE
== END 2016-11-18 15:38 | disposition disaster alternative care site (69) | DRG 872 ==
LOC: GMED 21:46 → GPCU 23:29
PROVIDERS: Emergency Medicine; Family Medicine; Internal Medicine; Internal Medicine Nephrology; ADMIT Internal Medicine
DX: A41.89 Other specified sepsis (principal); E44.0 Moderate protein-calorie malnutrition; E87.2 Acidosis; N17.9 Acute kidney failure, unspecified; N18.3 Chronic kidney disease, stage 3 (moderate); N13.30 Unspecified hydronephrosis; N39.0 Urinary tract infection, site not specified; Z68.1 Body mass index [BMI] 19.9 or less, adult; Z94.0 Kidney transplant status; E83.42 Hypomagnesemia; E87.5 Hyperkalemia; I12.9 Hypertensive chronic kidney disease with stage 1 through stage 4 chronic kidney disease, or unspecified chronic kidney disease; N32.0 Bladder-neck obstruction; N40.0 Benign prostatic hyperplasia without lower urinary tract symptoms; R65.20 Severe sepsis without septic shock; E11.9 Type 2 diabetes mellitus without complications; B96.1 Klebsiella pneumoniae [K. pneumoniae] as the cause of diseases classified elsewhere; R31.0 Gross hematuria
CPT/HCPCS: J0360; J0610; J2185; J3475; J7030; J7040; J7502; J7512; J7518

== ENCOUNTER → 2016-12-23 | Outpatient (CLI) | payer MEDICARE, MEDICAID ==
[~2016-12-23] MED LIST changes: +LEVAQUIN 750 M750 MG PO
[2016-12-23 10:11] LABS: BASOPHIL # 0.1 K/uL (0.0-0.2); BASOPHIL % 0.7 %; EOSINOPHIL # 0.6 K/uL (0.0-0.5); EOSINOPHIL % 6.3 %; HEMATOCRIT 38.5 % (37.0-53.0); HEMOGLOBIN 12.4 g/dL (12.0-17.0); IMMATURE GRANULOCYTE # 0.1 K/uL (0.0-0.3); IMMATURE GRANULOCYTE % 0.7 %; LYMPHOCYTE # 2.4 K/uL (0.8-4.0); LYMPHOCYTE % 24.4 %; MCH 30.2 pg (27.0-34.0); MCHC 32.2 gm/dL (32.0-36.5); MCV 93.7 fl (83.0-98.0); MONOCYTE # 1.3 K/uL (0.0-1.0); MONOCYTE % 13.5 %; MPV 10.8 fl (9.4-12.4); NEUTROPHIL # (ANC) 5.4 K/uL (1.4-9.0); NEUTROPHIL % 54.4 %; NRBC % 0 /100WBC (0-0.00); PLATELET COUNT 284 K/uL (150-450); RBC 4.11 M/uL (4.00-6.00); RDW-CV 14.6 % (11.9-14.6); WBC 9.9 K/uL (4.0-11.0)
[2016-12-23 10:23] LABS: ANION GAP 11.5 (10.0-19.0); CALCIUM 8.9 mg/dL (8.5-10.5); MAGNESIUM 1.8 mg/dL (1.8-2.6); POTASSIUM 4.5 mMol/L (3.7-5.1)
== END | disposition disaster alternative care site (69) ==
LOC: GLAB 09:46
PROVIDERS: Internal Medicine Nephrology
DX: Z48.22 Encounter for aftercare following kidney transplant (principal); Z94.0 Kidney transplant status; Z79.899 Other long term (current) drug therapy